=== PATIENT | male | born 1945 | race Caucasian/White ===

== ENCOUNTER 2020-07-24 05:59 | Inpatient (IN) | payer MEDICARE ==
[~2020-07-24] VITALS: Ht 177.8 cm; Wt 86.2 kg
[2020-07-24 07:29] LABS: HEMOGLOBIN 18.8 gm/dl (14.0-17.5); RED BLOOD COUNT 5.7 M/UL (4.20-5.50); WHITE BLOOD COUNT 5.6 K/UL (4.5-11.0)
[2020-07-24 07:56] LABS: BUN/CREATININE RATIO 24 (0-10)
[2020-07-24] MEDS ORDERED: ADIPEX-P37.5 M1 PO (10:44)
[2020-07-24] MEDS ORDERED: CIALIS5 MG PO (10:44)
[2020-07-24] MEDS ORDERED: COZAAR50 MG PO (10:44)
[2020-07-24] MEDS ORDERED: HYDROCHLOROTHIA25 MG PO (10:44)
[2020-07-24] MEDS ORDERED: TOPROL XL50 MG PO (10:45)
[2020-07-24] MEDS ORDERED: ZYRTEC10 MG PO ×2 (11:10→11:11)
[2020-07-25 05:48] LABS: HEMOGLOBIN 18.3 gm/dl (14.0-17.5); RED BLOOD COUNT 5.6 M/UL (4.20-5.50); WHITE BLOOD COUNT 4.6 K/UL (4.5-11.0)
[2020-07-25 06:11] LABS: BUN/CREATININE RATIO 27 (0-10)
[2020-07-28 05:40] LABS: BUN/CREATININE RATIO 30 (0-10)
[2020-07-28] MEDS ORDERED: DECADRON6 MG PO (10:26)
== END 2020-07-28 16:05 | disposition home or self-care (01) | DRG 177 ==
LOC: ER1 05:59 → CDU 09:18 → M/S 09:18
PROVIDERS: Family Medicine; ADMIT Internal Medicine
PROC: XW13325 Transfusion of Convalescent Plasma (Nonautologous) into Peripheral Vein, Percutaneous Approach, New Technology Group 5 (ICD-10-PCS; principal; 2020-07-24)
PROC: XW033E5 Introduction of Remdesivir Anti-infective into Peripheral Vein, Percutaneous Approach, New Technology Group 5 (ICD-10-PCS; 2020-07-24)
PROC: 8E0ZXY6 Isolation (ICD-10-PCS; 2020-07-24)
DX: U07.1 COVID-19 (principal); J96.01 Acute respiratory failure with hypoxia; J12.82 Pneumonia due to coronavirus disease 2019; I10 Essential (primary) hypertension; J30.9 Allergic rhinitis, unspecified
CPT/HCPCS: 36415; 36600; 71045; 80048; 80053; 82550; 82553; 82803; 83605; 83874; 83880; 84484; 85025; 85610; 86900; 86901; 86927; 93005; 94760; 96365; 96366; 96375; 99285; J0456; J0696; J1100; J1650; J7030; U0002